=== PATIENT | female | born 1990 | race Caucasian/White ===

== ENCOUNTER 2024-09-17 17:24 | Emergency (ER) | payer MEDICAID, SELFPAY ==
--- NOTE | 2024-09-17 17:36 | PD.EDADULT ---
ED General RME/HPI General Chief complaint: Medical Clearance Stated complaint: ASSISTED CLEARANCE Time Seen by Provider: 09/17/24 17:30 Arrival date/time: 09/17/24 17:24 CC: Medical clearance HPI patient is under arrest, comes assisted with a loans officer in handcuffs, with hypertension patient admits she has a history of hypertension but does not take any medicines for a long time . Patient denies any blurred vision seeing spots altered mentation nausea vomiting or diarrhea. Related Data Previous Rx's ?Medication ?Instructions ?Recorded amlodipine 5 mg tablet 5 mg PO .qhs #30 tabs 12/31/21 tramadol 37.5 mg-acetaminophen 325 1 tab PO TID PRN pain #15 tabs 04/07/22 mg tablet (Ultracet) ibuprofen 800 mg tablet 800 mg PO TID PRN pain #30 tabs 05/25/22 acetaminophen 650 mg 650 mg PO Q8H PRN fever or pain 01/02/23 tablet,extended release #30 tabs ibuprofen 600 mg tablet 600 mg PO Q8H PRN fever or pain 01/02/23 #30 tabs methylprednisolone 4 mg tablets in 4 mg PO QAM #21 tabs 12/16/23 a dose pack (Medrol (Martín)) losartan 25 mg tablet 25 mg PO QDAY #20 tabs 09/17/24 Allergies Allergy/AdvReac Type Severity Reaction Status Date / Time aspirin AdvReac Severe GI UPSET Verified 03/28/23 20:09 codeine AdvReac Severe GI UPSET Verified 03/28/23 20:09 Review of Systems Review of Systems Narrative Review of Systems: GEN: No fever, no chills, no weight loss EYES: No discharge, no visual changes, no pain HEENT: No ear pain, no congestion, no sore throat PULM: No shortness of breath, no cough, no congestion CV: No chest pain, no dyspnea on exertion, no palpitations GI: No nausea, no vomiting, no diarrhea, no pain, no constipation : No frequency, no urgency, no dysuria MUSC/SKEL: No joint pain, no back pain SKIN: No rash PSYCH: No hallucinations, no depression HEME/LYMPH: No easy bleeding or bruising tendencies NEURO: No weakness, no headache Past Medical History Past Medical History NEUROLOGIC: Negative Neurological Disorders or Seizures CARDIAC: Positive Cardiac Disorders and Hypertension; Negative Congestive Heart Failure RESPIRATORY: Negative Chronic Obstructive Pulmonary Disease (COPD) GASTROINTESTINAL: Negative Gastrointestinal Disorders, Hepatitis or Colorectal Cancer GENITOURINARY: Negative Genitourinary Disorders, Renal Disease or Prostate Cancer REPRODUCTIVE: Positive Previous Pregnancies; Negative Breast Cancer or Testicular Cancer MUSCULOSKELETAL: Negative Musculoskeletal Disorders or Bone Cancer ENT: Negative Cataracts, Glaucoma, Blind, Retinal Detachment, Macular Degeneration, Ear Infection, Deafness or Eye Prosthesis ENDOCRINE: Negative Endocrine Disorders, Diabetes Mellitus Type 1, Diabetes Mellitus Type 2, Hypoglycemia, Hyperthyroidism, Hypothyroidism, Parathyroid Disease, Pituitary Disease, Systemic Lupus Erythematosus, Syndrome of Inappropriate Antidiuretic Hormone (SIADH) or Graves' Disease HEMATOLOGIC: Negative Blood Disorders or Anemia PSYCHO/SOCIAL: Positive Recreational Drug Use OTHER HISTORY: Positive Hospitalization and Chicken Pox; Negative Autoimmune Disease, Down Syndrome, Developmental Delay, Shingles, Falls, Blood Transfusions, Blood Transfusion Reaction, Anesthesia Reactions, Organ Transplant, Chemotherapy, Radiation Therapy, Hyperbaric Therapy, MRSA, VRSA, Vancomycin-Resistant Enterococci, Human Immunodeficiency Virus (HIV), Measles, Mumps, Rubella (Uzbek Measles), Pertussis, Clostridium Difficile, Cancer, Breast Cancer, Cervical Cancer, Colorectal Cancer, Lung Cancer, Ovarian Cancer, Prostate Cancer or Testicular Cancer Family History FAMILY HISTORY: Positive Family Cardiac Disorders; Negative Family Psychiatric Problems, Family Respiratory Disorders, Family Gastrointestinal Problems, Family Cancer, Family Surgery or Family Anesthesia Reaction Surgical History SURGICAL: Positive Abdominal Surgery and Section; Negative Organ Transplant Social History SMOKING STATUS: Never smoker SECOND HAND EXPOSURE: Yes ED Exam Narrative Physical exam: [General: Obese not in any acute distress Head normocephalic HEENT: Within acceptable limits Neck is supple nontender Chest equal chest rise nontender to palpation Respiratory: Clear to auscultation no wheezes crackles or rubs CV: Rate rhythm is regular no murmurs rubs or clicks Abdomen is distended secondary to body habitus soft nontender no masses positive bowel sounds all 4 quadrants Back: No CVA tenderness no spinous process tenderness from cervical spine thoracic and lumbar spine Skin: Intact no petechiae rash induration ulceration or crepitus Extremities: Moving all extremity against resistance cap refill less than 2 seconds neurosensory intact Neuro: Awake alert oriented x3 Glascow coma 15 no focal deficits] Course Quality Measures none Orders Category Date Time Status Losartan [Cozaar] Med 09/17/24 18:25 Discontinued 25 mg PO X1 ONE cloNIDine HCL [Catapres] Med 09/17/24 17:35 Discontinued 0.2 mg PO X1 ONE Vital Signs Vital signs: Vital Signs Temperature 98.8 F 09/17/24 17:38 Pulse Rate 94 09/17/24 17:38 Respiratory Rate 16 09/17/24 17:38 Blood Pressure 166/131 H 09/17/24 17:38 Pulse Oximetry (%) 98 09/17/24 17:38 Oxygen Delivery Method Room Air 09/17/24 17:38 [facility] Patient data External records reviewed:: [facility] previous records Clinical information provided by:: patient and law enforcement Social determinants that could affect healthcare access:: none Patient has the following chronic illnesses:: Hypertension with noncompliance How is presenting disease/condition affected by chronic disease/condition?: exacerbated by Evaluation data The following diagnostics were reviewed and interpreted by me:: other (specify) (None) Lab and/or radiology exams considered but not ordered:: None Interpretation Summary: Patient is awake alert oriented denies any illicit street drugs or altered mentation stating she does not want a workup she wants to be taken to senior living where she can bail herself out and follow-up with her doctor. Medications Medications considered but not ordered:: None Medication administrations:: Medication Administration History Discontinued Medications Clonidine (Clonidine Hcl 0.1 Mg Tablet) 0.2 mg PO X1 ONE Stop: 09/17/24 17:36 Last Admin: 09/17/24 17:43 Dose: 0.2 mg Documented By: AA Losartan Potassium (Losartan Potassium 25 Mg Tablet) 25 mg PO X1 ONE Stop: 09/17/24 18:26 Last Admin: 09/17/24 18:31 Dose: 25 mg Documented By: DB None Consultations Consultation(s) initiated? (list below): No Diagnosis Differential Diagnosis ED Complaint MDM: Hypertension, hypertensive urgency, hypertensive emergency medical clearanc Most likely diagnosis given after review of the tests above:: Cleared for medical incarceration Admission Indicated Admission indicated?: not indicated Explain why admission is indicated or not indicated:: None Admission Request Was there a request for admission?: No Disposition Plan Disposition Plan: Discharge Discharge Attestation Discharge Attestation: The patient and all family members were given an opportunity to ask questions and understood the discharge instructions. Discharge instructions specifically effects, indications for sooner follow up or return to the emergency department, and the expected course of current diagnosis. Patient condition: Stable Medical Decision Making Differential Diagnosis Differential Diagnosis: Hypertension, hypertensive urgency, hypertensive emergency medical clearanc Discharge Plan Plan Patient Disposition: Half-Way/Court/Law Patient condition on transfer: Stable Prescriptions/Referrals Prescriptions/Med Rec: New losartan 25 mg tablet 25 mg PO QDAY Qty: 20 0RF No Action amlodipine 5 mg tablet 5 mg PO .qhs Qty: 30 0RF tramadol-acetaminophen [Ultracet] 37.5-325 mg tablet 1 tab PO TID PRN (Reason: pain) Qty: 15 0RF ibuprofen 800 mg tablet 800 mg PO TID PRN (Reason: pain) Qty: 30 0RF acetaminophen 650 mg tablet extended release 650 mg PO Q8H PRN (Reason: fever or pain) Qty: 30 0RF Rx Instructions: swallow whole; do not chew/break/dissolve/open ibuprofen 600 mg tablet 600 mg PO Q8H PRN (Reason: fever or pain) Qty: 30 0RF methylprednisolone [Medrol (Martín)] 4 mg tablets,dose pack 4 mg PO QAM Qty: 21 0RF Rx Instructions: Follow package instructions. Referrals: Antonio Lebron MD [Primary Care Provider] - In 1 week Problem List Clinical Impression: Medical clearance for incarceration, Hypertension Patient/Caregiver Discharge Instructions Print Language: Korean PA/PLANNER Supervising Physician PA/PLANNER Supervising Physician: Oliver Mace ENP
[2024-09-17 17:38] VITALS: BP 166/131; PULSE 94; RESP 16; TEMP 37.1; O2SAT 98
[2024-09-17 17:39] VITALS: BMI 30.9
[2024-09-17 17:43] VITALS: BP 166/131; PULSE 94
[2024-09-17] MEDS: cloNIDine HCL 0.1 MG TABLET 0.2 MG PO (17:43)
[2024-09-17 18:21] VITALS: BMI 29.0
[2024-09-17 18:25] VITALS: BP 147/102; PULSE 88; RESP 16; TEMP 37.1; O2SAT 97
[2024-09-17 18:31] VITALS: BP 147/102; PULSE 87
[2024-09-17] MEDS: LOSARTAN POTASSIUM 25 MG TABLET PO (18:31)
== END 2024-09-17 18:33 ==
PROVIDERS: Emergency Provider Emergency Medicine; PCP Family Medicine
DX: Z02.89 Encounter for other administrative examinations (principal); I10 Essential (primary) hypertension
CPT/HCPCS: 99282; A9270